=== PATIENT | female | born 2005 | race Caucasian/White ===

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

== ENCOUNTER 2023-08-23 16:17 | Outpatient (CLI) | payer BC, SELFPAY | END 2023-08-23 16:18 | disposition home or self-care (01) | LOC: LKVREF 16:25 | PROVIDERS: PCP Family Medicine; Visit Provider Family Medicine | DX: R10.12 Left upper quadrant pain (principal) | CPT/HCPCS: 80053 ==

== ENCOUNTER 2023-09-04 13:43 | Outpatient (CLI) | payer BC, SELFPAY ==
--- NOTE | 2023-09-04 14:00 | CRLHL7_ITS ---
For Patients: As a result of the Century Cures Act, medical imaging exams and procedure reports are released immediately into your electronic medical record. You may view this report before your referring provider. If you have questions, please contact your health care provider. INDICATION: This likely recently ingested material. However, please correlate clinically.. TECHNIQUE: CT abdomen and pelvis acquired with 84 cc Isovue 370 IV contrast. COMPARISON: None. FINDINGS: Lower chest: Unremarkable. Liver: Unremarkable. Normal in size and attenuation. No suspicious masses. Gallbladder and bile ducts: Unremarkable. No stones or inflammation. No biliary dilatation. Pancreas: Unremarkable. No mass or inflammation. Spleen: Unremarkable. Normal in size. No masses. Adrenal glands: Unremarkable. No nodules. Kidneys: Unremarkable. No suspicious masses, stones, or hydronephrosis. GI tract: Moderately distended stomach. Small bowel and colon normal in appearance. Normal air-filled appendix. Vasculature: Abdominal aorta is normal in caliber. Mesenteric arteries are patent. Lymph nodes: No lymphadenopathy. Peritoneum/Abdominal Wall: Unremarkable. No sign of mass or infiltration. No free air or significant free fluid. Pelvis: Unremarkable. Bones: No acute findings. Transitional lumbosacral anatomy. IMPRESSION: 1. No acute findings in the abdomen or pelvis. 2. Moderately distended stomach. It is filled with likely recently ingested material. However, please correlate clinically. Please note that all CT scans at this facility use dose modulation, iterative reconstruction, and/or weight-based dosing when appropriate to reduce radiation dose to as low as reasonably achievable. Dictated by Herb Sullivan MD @ 09/05/2023 12:05:18 PM (Electronically Signed)
== END 2023-09-04 13:44 | disposition home or self-care (01) ==
LOC: CT 13:43
PROVIDERS: PCP Family Medicine; Visit Provider Family Medicine
DX: R10.9 Unspecified abdominal pain (principal)
CPT/HCPCS: 74177; Q9967